=== PATIENT | male | born 1970 | race Two or more races ===

== ENCOUNTER 2022-03-29 17:21 | Emergency (ER) | payer SELFPAY ==
[2022-03-29] MEDS: Diltiazem 25 MG/5 ML SDV IVPUSH ONE (17:45)
[2022-03-29] MEDS: Lactated Ringers 1,000 ML IV STA (17:46)
[2022-03-29] MEDS: Sodium Chloride 0.9% 10 ML Syringe FLUSH PRN (17:51)
[2022-03-29] MEDS: Sodium Chloride 0.9% 2.5 ML Syringe FLUSH PRN (17:51)
[2022-03-29 18:22] LABS: CARBON DIOXIDE,CO2 26.3 mmol/L (21.0-32.0); POTASSIUM,K 3.3 mmol/L (3.5-5.1)
[2022-03-29] MEDS: Carvedilol 25 MG Tab PO ONE (18:28)
[2022-03-29] MEDS: Aspirin 81 MG Tab.Chew PO ONE (19:08)
[2022-03-29] MEDS: atorvaSTATin 40 MG Tab PO ONE (20:47)
[2022-03-29] MEDS: Apixaban 5 MG Tab PO STA (20:47)
== END 2022-03-29 21:07 | disposition home or self-care (01) ==
LOC: MW.ED 17:21
DX: I48.91 Unspecified atrial fibrillation (principal); R77.8 Other specified abnormalities of plasma proteins; Z79.01 Long term (current) use of anticoagulants; Z20.822 Contact with and (suspected) exposure to COVID-19
CPT/HCPCS: 36415; 71045; 80053; 83735; 84443; 84484; 85025; 87635; 93005; 96361; 96374; 99285; A9270; J3490; J7120; U0002

== ENCOUNTER 2022-11-23 18:15 | Emergency (ER) | payer SELFPAY ==
[2022-11-23 18:34] LABS: BASOPHILS PERCENT AUTO 0.2 % (0.0-1.5); EOSINOPHILS ABSOLUTE AUTO 0.1 K/uL (0.0-0.7); HEMATOCRIT 43.4 % (38.0-50.0); LYMPHOCYTES ABSOLUTE AUTO 1.5 K/uL (0.6-2.4); MEAN CORPUSCULAR HEMOGLOBIN 32.7 pg (27.0-32.0); MEAN CORPUSCULAR HGB CONC 34.6 g/dL (31.0-37.0); MEAN CORPUSCULAR VOLUME 94.6 fL (80.0-98.0); MONOCYTES ABSOLUTE AUTO 0.3 K/uL (0.0-0.8); MONOCYTES PERCENT AUTO 6.9 % (0.0-15.0); NEUTROPHILS ABSOLUTE AUTO 2.7 K/uL (1.4-5.7); NEUTROPHILS PERCENT AUTO 57.9 % (48.0-80.0); PLATELET COUNT,PLT 109 K/uL (150-400); RED BLOOD CELL COUNT 4.59 M/uL (4.50-5.90); WHITE BLOOD CELL COUNT,WBC 4.62 K/uL (4.0-11.0)
[2022-11-23] MEDS ORDERED: Aspirin 81 MG Tab.Chew PO ONE (18:39)
[2022-11-23] MEDS ORDERED: Metoprolol Tartrate 25 MG Tab PO ONE (18:41)
[2022-11-23] MEDS ORDERED: Metoprolol Tartrate 5 MG/5 ML SDV IVPUSH ONE (18:41)
[2022-11-23] MEDS ORDERED: Lactated Ringers 1,000 ML IV SCH (18:45)
[2022-11-23 18:49] LABS: INR 0.95 (0.86-1.11)
[2022-11-23 19:03] LABS: A/G RATIO 0.7 (0.9-1.6); ACETAMINOPHEN <2.0 ug/mL; ALANINE AMINOTRANSFERASE,ALT 157 IU/L (14-63); ALBUMIN 3.4 g/dL (3.4-5.0); ALKALINE PHOSPHATASE 71 U/L (46-116); ASPARTATE AMNIOTRANSFERASE,AST 168 IU/L (15-37); BILIRUBIN TOTAL 0.2 mg/dL (0.2-1.0); BLOOD UREA NITROGEN,BUN 12 mg/dL (7.0-18.0); CALCIUM 8.8 mg/dL (8.5-10.1); CARBON DIOXIDE,CO2 24.3 mmol/L (21.0-32.0); CHLORIDE,CL 103 mmol/L (98-107); CREATININE 0.8 mg/dL (0.8-1.3); EST CRCL DRUG DOSING (CG) 109.51 mL/min; GLUCOSE RANDOM 130 mg/dL (74-106); LIPASE 146 U/L (73-393); MAGNESIUM 1.6 mg/dL (1.8-2.4); POTASSIUM,K 3.1 mmol/L (3.5-5.1); SALICYLATE 4.2 mg/dL (0.0-20.0); SODIUM,NA 143 mmol/L (136-148)
[2022-11-23 19:05] LABS: ESTIMATED GFR 106 mL/min (>60)
[2022-11-23 19:06] LABS: ETHANOL BLOOD MEDICAL 341 mg/dL
[2022-11-23] MEDS ORDERED: Magnesium Sulfate/Water 2 GM in Premix Bag 1 BAG IV ONE (19:14)
[2022-11-23] MEDS ORDERED: Potassium Chloride 20 MEQ in Premix Bag 1 BAG IV ONE (19:14)
[2022-11-23] MEDS ORDERED: Potassium Chloride 20 MEQ Tab.ER PO ONE (19:14)
[2022-11-23 19:24] LABS: LACTIC ACID 3.7 mmol/L (0.4-2.0)
[2022-11-23] MEDS ORDERED: Lactated Ringers 1,000 ML IV ONE (19:35)
[2022-11-23] MEDS ORDERED: Enoxaparin 60 MG/0.6 ML Syringe SUBCUT ONE (19:36)
[2022-11-23] MEDS ORDERED: Sodium Chloride 0.9% 250 ML IV PRN (19:37)
[2022-11-23 20:22] LABS: CORONAVIRUS COVID-19 NAA NEGATIVE (NEGATIVE); INFLUENZA A NAA NEGATIVE (NEGATIVE); INFLUENZA B NAA NEGATIVE (NEGATIVE); RESPIRATORY SYNCYTIAL VIR NAA NEGATIVE (NEGATIVE)
[2022-11-23] MEDS ORDERED: Iopamidol 755 MG/ML 500 ML Multipack Bottle IVPUSH STA (21:22)
== END 2022-11-23 23:16 | disposition home or self-care (01) ==
LOC: MW.ED 18:15
DX: I48.91 Unspecified atrial fibrillation (principal); Z79.899 Other long term (current) drug therapy; Z79.01 Long term (current) use of anticoagulants; Z20.822 Contact with and (suspected) exposure to COVID-19
CPT/HCPCS: 0241U; 36415; 71045; 71275; 80053; 80143; 80179; 80307; 83605; 83690; 83735; 83880; 84484; 85025; 85379; 85610; 85730; 86850; 86900; 86901; 93005; 96365; 96367; 96372; 96375; 99285; A9270; J1650; J3475; J3480; J3490; J7050; J7120; Q9967; 93010; 99284

== ENCOUNTER 2023-09-14 13:24 | Emergency (ER) | payer SELFPAY ==
[2023-09-14 13:44] LABS: BASOPHILS ABSOLUTE AUTO 0.03 K/uL (0.00-0.20); BASOPHILS PERCENT AUTO 0.6 % (0.0-1.0); EOSINOPHILS ABSOLUTE AUTO 0.22 K/uL (0.00-0.45); EOSINOPHILS PERCENT AUTO 4.7 % (0.0-6.0); HEMATOCRIT 39.7 % (42.0-52.0); HEMOGLOBIN 13.9 g/dL (14.0-18.0); IMMATURE GRAN ABSOLUTE AUTO 0.01 K/uL (0.00-0.05); IMMATURE GRAN PERCENT AUTO 0.2 % (0.0-0.4); LYMPHOCYTES ABSOLUTE AUTO 1.61 K/uL (1.00-4.80); LYMPHOCYTES PERCENT AUTO 34.2 % (24.0-44.0); MEAN CORPUSCULAR HEMOGLOBIN 32.4 pg (28.0-32.0); MEAN CORPUSCULAR VOLUME 92.5 fL (83.0-99.0); MEAN PLATELET VOLUME 10.1 fL (9.4-12.4); MONOCYTES ABSOLUTE AUTO 0.65 K/uL (0.00-0.80); MONOCYTES PERCENT AUTO 13.8 % (0.0-8.0); NEUTROPHILS ABSOLUTE AUTO 2.19 K/uL (1.80-7.70); NEUTROPHILS PERCENT AUTO 46.5 % (41.0-71.0); PLATELET COUNT,PLT 180 K/uL (150-400); RED BLOOD CELL COUNT 4.29 M/uL (4.52-5.90); WHITE BLOOD CELL COUNT,WBC 4.71 K/uL (3.9-11.3)
[2023-09-14 13:57] LABS: INR 0.98 (0.86-1.11); PTT,PARTIAL THROMBOPLSTIN TIME 28.9 SEC (23.9-30.7)
[2023-09-14 14:09] LABS: A/G RATIO 0.8 (0.9-1.6); ALBUMIN 3.5 g/dL (3.4-5.0); BILIRUBIN TOTAL 0.3 mg/dL (0.2-1.0); CALCIUM 9.9 mg/dL (8.5-10.1); CARBON DIOXIDE,CO2 23.4 mmol/L (21.0-32.0); CREATININE 1.1 mg/dL (0.8-1.3); EST CRCL DRUG DOSING (CG) 79.27 mL/min; POTASSIUM,K 4.4 mmol/L (3.5-5.1); PROTEIN TOTAL,TP 7.8 g/dL (6.4-8.2)
[2023-09-14 14:25] LABS: CORONAVIRUS COVID-19 NAA NEGATIVE (NEGATIVE); INFLUENZA A NAA NEGATIVE (NEGATIVE); INFLUENZA B NAA NEGATIVE (NEGATIVE)
[2023-09-14] MEDS: Carvedilol 12.5 MG Tab PO ONE (16:33)
[2023-09-14] MEDS: Lisinopril 10 MG Tab PO ONE (16:34)
== END 2023-09-14 16:40 | disposition home or self-care (01) ==
LOC: MW.ED 13:24
DX: R07.9 Chest pain, unspecified (principal); I10 Essential (primary) hypertension; I25.2 Old myocardial infarction; Z91.198 Patient's noncompliance with other medical treatment and regimen for other reason; F17.210 Nicotine dependence, cigarettes, uncomplicated
CPT/HCPCS: 0240U; 36415; 71045; 80053; 84484; 85025; 85610; 85730; 99285; A9270; 93010; 99283

== ENCOUNTER 2023-11-12 09:15 | Emergency (ER) | payer SELFPAY ==
[2023-11-12] MEDS: Cyclobenzaprine 10 MG Tab PO ONE (09:52)
[2023-11-12] MEDS: Ibuprofen 600 MG Tab PO ONE (09:52)
== END 2023-11-12 11:02 | disposition home or self-care (01) ==
LOC: MW.ED 09:15
DX: M54.42 Lumbago with sciatica, left side (principal); I10 Essential (primary) hypertension; I25.2 Old myocardial infarction; Z79.82 Long term (current) use of aspirin; Z79.899 Other long term (current) drug therapy; Z75.8 Other problems related to medical facilities and other health care
CPT/HCPCS: 72100; 99283; A9270

== ENCOUNTER 2024-01-19 03:42 | Emergency (ER) | payer SELFPAY ==
[2024-01-19 03:54] LABS: BASOPHILS ABSOLUTE AUTO 0.02 K/uL (0.00-0.20); BASOPHILS PERCENT AUTO 0.3 % (0.0-1.0); EOSINOPHILS ABSOLUTE AUTO 0.13 K/uL (0.00-0.45); EOSINOPHILS PERCENT AUTO 2.1 % (0.0-6.0); HEMATOCRIT 43.6 % (42.0-52.0); HEMOGLOBIN 14.7 g/dL (14.0-18.0); IMMATURE GRAN ABSOLUTE AUTO 0.01 K/uL (0.00-0.05); IMMATURE GRAN PERCENT AUTO 0.2 % (0.0-0.4); LYMPHOCYTES ABSOLUTE AUTO 1.33 K/uL (1.00-4.80); LYMPHOCYTES PERCENT AUTO 21.3 % (24.0-44.0); MEAN CORPUSCULAR HEMOGLOBIN 31.3 pg (28.0-32.0); MEAN CORPUSCULAR HGB CONC 33.7 g/dL (32.0-36.0); MEAN PLATELET VOLUME 10.9 fL (9.4-12.4); MONOCYTES ABSOLUTE AUTO 0.65 K/uL (0.00-0.80); MONOCYTES PERCENT AUTO 10.4 % (0.0-8.0); NEUTROPHILS PERCENT AUTO 65.7 % (41.0-71.0); PLATELET COUNT,PLT 173 K/uL (150-400); RED BLOOD CELL COUNT 4.69 M/uL (4.52-5.90); WHITE BLOOD CELL COUNT,WBC 6.24 K/uL (3.9-11.3)
[2024-01-19] MEDS: Diltiazem 25 MG/5 ML SDV IVPUSH ONE ×2 (04:02)
[2024-01-19] MEDS: Sodium Chloride 0.9% 1,000 ML IV ONE (04:16)
[2024-01-19] MEDS: Sodium Chloride 0.9% 2.5 ML Syringe FLUSH PRN (04:17)
[2024-01-19 04:21] LABS: CARBON DIOXIDE,CO2 24.4 mmol/L (21.0-32.0); POTASSIUM,K 5.3 mmol/L (3.5-5.1)
[2024-01-19 04:22] LABS: A/G RATIO 0.8 (0.9-1.6); ALBUMIN 3.8 g/dL (3.4-5.0); BILIRUBIN TOTAL 0.5 mg/dL (0.2-1.0); CALCIUM 9.4 mg/dL (8.5-10.1); EST CRCL DRUG DOSING (CG) 67.96 mL/min; PROTEIN TOTAL,TP 8.6 g/dL (6.4-8.2)
[2024-01-19 04:23] LABS: APPEARANCE,URINE CLEAR; BILIRUBIN,URINE NEGATIVE (NEGATIVE); COLOR,URINE YELLOW; GLUCOSE,URINE NEGATIVE (NEGATIVE); KETONES,URINE 15 mg/dL (NEGATIVE); LEUKOCYTE ESTERASE,URINE NEGATIVE (NEGATIVE); NITRITE,URINE NEGATIVE (NEGATIVE); OCCULT BLOOD,URINE SMALL (NEGATIVE); PH,URINE 5.5 (5.0-8.0); PROTEIN,URINE NEGATIVE (NEGATIVE); UROBILINOGEN,URINE 0.2 EU/dL (<2.0)
[2024-01-19 04:30] LABS: BACTERIA,URINE RARE (NEGATIVE); EPITHELIAL CELLS,URINE RARE (NONE-FEW); HYALINE CASTS,URINE 0-2 (0-2/LPF); WBC,URINE 0-2 (0-5/HPF)
[2024-01-19 04:37] LABS: D-DIMER QUANTITATIVE 0.69 mg/L FEU (0.00-0.50); INR 1.01 (0.86-1.11); PTT,PARTIAL THROMBOPLSTIN TIME 32.6 SEC (23.9-30.7)
[2024-01-19 04:42] LABS: TSH ULTRASENSITIVE 0.02 uIU/mL (0.36-3.74)
[2024-01-19] MEDS: Diltiazem 100 MG in Sodium Chloride 0.9% 100 ML IV SCH (04:49)
[2024-01-19] MEDS: Magnesium Sulfate/Water 2 GM in Premix Bag 1 BAG IV ONE (04:49)
[2024-01-19 05:38] LABS: T4 FREE 1.67 ng/dL (0.76-1.46)
[2024-01-19] MEDS: Iopamidol 755 MG/ML 500 ML Multipack Bottle IVPUSH STA (05:51)
[2024-01-19] MEDS: diphenhydrAMINE 50 MG/ML SDV IVPUSH ONE (06:14)
[2024-01-19] MEDS: Ondansetron 4 MG/2 ML SDV IVPUSH ONE (06:14)
[2024-01-19] MEDS: diphenhydrAMINE 50 MG/ML SDV ONE (06:36)
[2024-01-19] MEDS: Ondansetron 4 MG/2 ML SDV ONE (06:36)
[2024-01-19] MEDS: Enoxaparin 100 MG/1 ML Syringe SUBCUT STA (06:55)
== END 2024-01-19 09:45 ==
LOC: MW.ED 03:42
DX: I21.4 Non-ST elevation (NSTEMI) myocardial infarction (principal); I48.91 Unspecified atrial fibrillation; I10 Essential (primary) hypertension; I25.2 Old myocardial infarction; Z95.0 Presence of cardiac pacemaker; Z79.82 Long term (current) use of aspirin; Z79.899 Other long term (current) drug therapy
CPT/HCPCS: 36415; 71275; 74177; 80053; 81001; 83735; 83880; 84439; 84443; 84484; 85025; 85379; 85610; 85730; 87651; 93005; 96361; 96365; 96366; 96368; 96372; 96375; 96376; 99285; J1200; J1650; J2405; J3475; J3490; J7030; Q9967

== ENCOUNTER 2024-04-05 06:21 | Day surgery (SDC) | payer SELFPAY ==
[~2024-04-05 06:21] MED LIST: Albuterol 0.083% 2.5 MG/3 ML Neb Soln NEB PRN; HYDROmorphone 1 MG/ML Syringe IVPUSH PRN; Lactated Ringers 1,000 ML IV SCH; Metoclopramide 10 MG/2 ML SDV IVPUSH PRN; Morphine 2 MG/ML SYRINGE IVPUSH PRN; Naloxone 0.4 MG/ML SDV IVPUSH PRN; Ondansetron 4 MG/2 ML SDV IVPUSH PRN; Phenylephrine HCl In 0.9% NaCl 1 MG/10 ML Syringe IVPUSH PRN; droPERidol 5 MG/2 ML SDV IVPUSH PRN; fentaNYL 50 MCG/ML SDV IVPUSH PRN
[2024-04-05] MEDS: Lactated Ringers 1,000 ML IV SCH (06:50)
[2024-04-05] MEDS ORDERED: Bupivacaine 0.5% 30 ML SDV ONE (07:22)
[2024-04-05] MEDS ORDERED: Lidocaine 1% 20 ML MDV ONE (07:22)
[2024-04-05] MEDS ORDERED: Propofol 200 MG/20 ML SDV ONE (07:26)
[2024-04-05] MEDS ORDERED: Lidocaine 2% 5 ML SDV ONE (07:26)
[2024-04-05] MEDS ORDERED: Ondansetron 4 MG/2 ML SDV ONE (07:26)
[2024-04-05] MEDS ORDERED: Dexamethasone 4 MG/ML 5 ML MDV ONE (07:26)
[2024-04-05] MEDS ORDERED: fentaNYL 100 MCG/2 ML SDV ONE (07:26)
[2024-04-05] MEDS ORDERED: Ketorolac 30 MG/ML SDV ONE (07:26)
[2024-04-05] MEDS ORDERED: Lidocaine 2% 11 ML Jelly Filled Syringe ONE (07:26)
[2024-04-05] MEDS ORDERED: ePHEDrine 50 MG/ML SDV ONE (08:03)
[2024-04-05] MEDS ORDERED: ceFAZolin 1 GM Vial ONE (08:04)
[2024-04-05] MEDS ORDERED: Phenylephrine HCl In 0.9% NaCl 1 MG/10 ML Syringe ONE (08:10)
[2024-04-05] MEDS ORDERED: Glycopyrrolate 0.2 MG/ML SDV ONE (08:14)
[2024-04-05] MEDS ORDERED: Atropine 1 MG/ML SDV ONE (08:19)
[2024-04-05] MEDS ORDERED: Calcium Chloride 10% 1 GM/10 ML Syringe ONE (08:22)
[2024-04-05] MEDS ORDERED: Acetaminophen/HYDROcodone 325-5 MG Tab PO PRN (08:59)
[2024-04-05] MEDS ORDERED: Lactated Ringers 1,000 ML IV SCH (09:00)
== END 2024-04-05 09:34 | disposition home or self-care (01) ==
LOC: MW.SDS 06:21
PROVIDERS: ATTEND Surgery
DX: D17.22 Benign lipomatous neoplasm of skin and subcutaneous tissue of left arm (principal); I10 Essential (primary) hypertension; I25.10 Atherosclerotic heart disease of native coronary artery without angina pectoris; I48.0 Paroxysmal atrial fibrillation; E78.5 Hyperlipidemia, unspecified; Z79.82 Long term (current) use of aspirin; Z79.899 Other long term (current) drug therapy
CPT/HCPCS: 23071; J0461; J0665; J0690; J1100; J1596; J1885; J2371; J2405; J2704; J3010; J7120; 00400; A9270-GY; J3490

== ENCOUNTER 2024-04-17 14:07 | Emergency (ER) | payer SELFPAY | END 2024-04-17 16:00 | disposition home or self-care (01) | LOC: MW.ED 14:07 | DX: T81.30XA Disruption of wound, unspecified, initial encounter (principal); I10 Essential (primary) hypertension; I25.2 Old myocardial infarction; Z95.0 Presence of cardiac pacemaker; Z79.899 Other long term (current) drug therapy; Z75.8 Other problems related to medical facilities and other health care; Z95.1 Presence of aortocoronary bypass graft | CPT/HCPCS: 99283 ==

== ENCOUNTER 2024-08-25 08:27 | Emergency (ER) | payer OTHER | END 2024-08-25 10:28 | disposition home or self-care (01) | LOC: MW.ED 08:27 | DX: J40 Bronchitis, not specified as acute or chronic (principal); B34.9 Viral infection, unspecified; I48.91 Unspecified atrial fibrillation; I10 Essential (primary) hypertension; I25.2 Old myocardial infarction; Z95.0 Presence of cardiac pacemaker; Z95.1 Presence of aortocoronary bypass graft; Z79.899 Other long term (current) drug therapy | CPT/HCPCS: 87428-QW; 99284 ==

== ENCOUNTER 2024-11-25 13:05 | Emergency (ER) | payer SELFPAY ==
[2024-11-25 13:28] LABS: BASOPHILS ABSOLUTE AUTO 0.03 K/uL (0.00-0.20); BASOPHILS PERCENT AUTO 0.7 % (0.0-1.0); EOSINOPHILS ABSOLUTE AUTO 0.15 K/uL (0.00-0.45); EOSINOPHILS PERCENT AUTO 3.3 % (0.0-6.0); HEMATOCRIT 40.4 % (42.0-52.0); IMMATURE GRAN ABSOLUTE AUTO 0.01 K/uL (0.00-0.05); IMMATURE GRAN PERCENT AUTO 0.2 % (0.0-0.4); LYMPHOCYTES ABSOLUTE AUTO 1.08 K/uL (1.00-4.80); LYMPHOCYTES PERCENT AUTO 23.6 % (24.0-44.0); MEAN CORPUSCULAR HEMOGLOBIN 31.7 pg (28.0-32.0); MEAN CORPUSCULAR HGB CONC 34.7 g/dL (32.0-36.0); MEAN CORPUSCULAR VOLUME 91.6 fL (83.0-99.0); MEAN PLATELET VOLUME 10.3 fL (9.4-12.4); MONOCYTES ABSOLUTE AUTO 0.56 K/uL (0.00-0.80); MONOCYTES PERCENT AUTO 12.3 % (0.0-8.0); NEUTROPHILS ABSOLUTE AUTO 2.74 K/uL (1.80-7.70); NEUTROPHILS PERCENT AUTO 59.9 % (41.0-71.0); PLATELET COUNT,PLT 206 K/uL (150-400); RED BLOOD CELL COUNT 4.41 M/uL (4.52-5.90); WHITE BLOOD CELL COUNT,WBC 4.57 K/uL (3.9-11.3)
[2024-11-25 13:54] LABS: INR 0.99 (0.86-1.11)
[2024-11-25] MEDS: Aspirin 81 MG Tab.Chew PO ONE (13:55)
[2024-11-25 13:58] LABS: A/G RATIO 0.9 (0.9-1.6); ALBUMIN 3.5 g/dL (3.4-5.0); BILIRUBIN TOTAL 0.3 mg/dL (0.2-1.0); CALCIUM 9.2 mg/dL (8.5-10.1); CARBON DIOXIDE,CO2 27.7 mmol/L (21.0-32.0); EST CRCL DRUG DOSING (CG) 78.03 mL/min; MAGNESIUM 1.8 mg/dL (1.8-2.4); POTASSIUM,K 3.8 mmol/L (3.5-5.1); PROTEIN TOTAL,TP 7.6 g/dL (6.4-8.2)
[2024-11-25] MEDS: Heparin Sodium/0.45% NaCl 25,000 UNITS/250 ML BAG IV SCH (15:07)
[2024-11-25] MEDS: Heparin Sodium 5,000 Units/ML Vial IVPUSH ONE (15:07)
[2024-11-25] MEDS: Nitroglycerin 2% Oint 1 GM UD Packet TOP STA (16:17)
== END 2024-11-25 16:59 ==
LOC: MW.ED 13:05
DX: I21.4 Non-ST elevation (NSTEMI) myocardial infarction (principal); I25.2 Old myocardial infarction; I10 Essential (primary) hypertension; Z95.5 Presence of coronary angioplasty implant and graft; Z79.899 Other long term (current) drug therapy
CPT/HCPCS: 36415; 71045; 80053; 83690; 83735; 83880; 84484; 85025; 85610; 85730; 93005; 96365; 96366; 99285; A9270; J1644; 93010

== ENCOUNTER 2024-12-25 11:40 | Emergency (ER) | payer SELFPAY ==
[2024-12-25 12:07] LABS: BASOPHILS ABSOLUTE AUTO 0.02 K/uL (0.00-0.20); BASOPHILS PERCENT AUTO 0.5 % (0.0-1.0); EOSINOPHILS ABSOLUTE AUTO 0.18 K/uL (0.00-0.45); EOSINOPHILS PERCENT AUTO 4.6 % (0.0-6.0); HEMATOCRIT 38.4 % (42.0-52.0); HEMOGLOBIN 13.1 g/dL (14.0-18.0); IMMATURE GRAN ABSOLUTE AUTO 0.01 K/uL (0.00-0.05); IMMATURE GRAN PERCENT AUTO 0.3 % (0.0-0.4); LYMPHOCYTES ABSOLUTE AUTO 1.04 K/uL (1.00-4.80); LYMPHOCYTES PERCENT AUTO 26.8 % (24.0-44.0); MEAN CORPUSCULAR HEMOGLOBIN 31.3 pg (28.0-32.0); MEAN CORPUSCULAR HGB CONC 34.1 g/dL (32.0-36.0); MEAN CORPUSCULAR VOLUME 91.9 fL (83.0-99.0); MEAN PLATELET VOLUME 10.1 fL (9.4-12.4); MONOCYTES ABSOLUTE AUTO 0.52 K/uL (0.00-0.80); MONOCYTES PERCENT AUTO 13.4 % (0.0-8.0); NEUTROPHILS ABSOLUTE AUTO 2.11 K/uL (1.80-7.70); NEUTROPHILS PERCENT AUTO 54.4 % (41.0-71.0); PLATELET COUNT,PLT 220 K/uL (150-400); RED BLOOD CELL COUNT 4.18 M/uL (4.52-5.90); WHITE BLOOD CELL COUNT,WBC 3.88 K/uL (3.9-11.3)
[2024-12-25 12:21] LABS: INR 1.02 (0.86-1.11); PTT,PARTIAL THROMBOPLSTIN TIME 28.5 SEC (23.9-30.7)
[2024-12-25 12:29] LABS: A/G RATIO 0.9 (0.9-1.6); ALBUMIN 3.7 g/dL (3.4-5.0); BILIRUBIN TOTAL 0.3 mg/dL (0.2-1.0); CALCIUM 9.7 mg/dL (8.5-10.1); CARBON DIOXIDE,CO2 26.1 mmol/L (21.0-32.0); EST CRCL DRUG DOSING (CG) 83.47 mL/min
[2024-12-25 12:37] LABS: MAGNESIUM 1.7 mg/dL (1.8-2.4)
[2024-12-25 13:06] LABS: APPEARANCE,URINE CLEAR; BILIRUBIN,URINE NEGATIVE (NEGATIVE); COLOR,URINE YELLOW; GLUCOSE,URINE NEGATIVE (NEGATIVE); KETONES,URINE NEGATIVE (NEGATIVE); LEUKOCYTE ESTERASE,URINE NEGATIVE (NEGATIVE); NITRITE,URINE NEGATIVE (NEGATIVE); OCCULT BLOOD,URINE SMALL (NEGATIVE); PH,URINE 5.5 (5.0-8.0); PROTEIN,URINE NEGATIVE (NEGATIVE); UROBILINOGEN,URINE 0.2 EU/dL (<2.0)
[2024-12-25 13:13] LABS: BACTERIA,URINE FEW (NEGATIVE); EPITHELIAL CELLS,URINE RARE (NONE-FEW); RBC,URINE 0-1 (0-2/HPF); WBC,URINE 0-1 (0-5/HPF)
== END 2024-12-25 15:36 | disposition home or self-care (01) ==
LOC: MW.ED 11:40
DX: R07.89 Other chest pain (principal); R31.9 Hematuria, unspecified; I10 Essential (primary) hypertension; Z75.3 Unavailability and inaccessibility of health-care facilities; Z91.148 Patient's other noncompliance with medication regimen for other reason; Z79.899 Other long term (current) drug therapy
CPT/HCPCS: 36415; 71045; 71045-26; 80053; 81001; 83690; 83735; 83880; 84484; 85025; 85610; 85730; 93005; 93010; 99284; 99285

== ENCOUNTER 2025-01-23 07:38 | Emergency (ER) | payer SELFPAY ==
[2025-01-23] MEDS ORDERED: Sodium Chloride 0.9% 10 ML Syringe FLUSH PRN (07:59)
[2025-01-23] MEDS ORDERED: Sodium Chloride 0.9% 2.5 ML Syringe FLUSH PRN (07:59)
[2025-01-23 08:18] LABS: BASOPHILS ABSOLUTE AUTO 0.01 K/uL (0.00-0.20); BASOPHILS PERCENT AUTO 0.2 % (0.0-1.0); EOSINOPHILS ABSOLUTE AUTO 0.09 K/uL (0.00-0.45); EOSINOPHILS PERCENT AUTO 1.9 % (0.0-6.0); IMMATURE GRAN ABSOLUTE AUTO 0.01 K/uL (0.00-0.05); IMMATURE GRAN PERCENT AUTO 0.2 % (0.0-0.4); LYMPHOCYTES ABSOLUTE AUTO 1.42 K/uL (1.00-4.80); LYMPHOCYTES PERCENT AUTO 29.3 % (24.0-44.0); MEAN PLATELET VOLUME 10.5 fL (9.4-12.4); MONOCYTES ABSOLUTE AUTO 0.68 K/uL (0.00-0.80); MONOCYTES PERCENT AUTO 14.0 % (0.0-8.0); NEUTROPHILS ABSOLUTE AUTO 2.63 K/uL (1.80-7.70); NEUTROPHILS PERCENT AUTO 54.4 % (41.0-71.0); NRBC ABSOLUTE 0.00 K/uL (0.00-0.02); NRBC PERCENT 0.0 /100WBC (0.0-0.2); PLATELET COUNT,PLT 167 K/uL (150-400); RED BLOOD CELL COUNT 4.29 M/uL (4.52-5.90); WHITE BLOOD CELL COUNT,WBC 4.84 K/uL (3.9-11.3)
[2025-01-23 08:46] LABS: A/G RATIO 0.8 (0.9-1.6); ALANINE AMINOTRANSFERASE,ALT 14.0 IU/L (14-63); ASPARTATE AMNIOTRANSFERASE,AST 21.0 IU/L (15-37); BILIRUBIN TOTAL 0.2 mg/dL (0.2-1.0); BLOOD UREA NITROGEN,BUN 14.0 mg/dL (7.0-18.0); CARBON DIOXIDE,CO2 24.1 mmol/L (21.0-32.0); CHLORIDE,CL 101.0 mmol/L (98-107); CREATININE 1.0 mg/dL (0.8-1.3); EST CRCL DRUG DOSING (CG) 83.47 mL/min; GLUCOSE RANDOM 132.0 mg/dL (74-106); POTASSIUM,K 3.7 mmol/L (3.5-5.1); PROTEIN TOTAL,TP 7.4 g/dL (6.4-8.2); SODIUM,NA 135.0 mmol/L (136-148)
[2025-01-23 08:47] LABS: ESTIMATED GFR 89.0 mL/min (>60)
== END 2025-01-23 09:12 | disposition home or self-care (01) ==
LOC: MW.ED 07:38
DX: U07.1 COVID-19 (principal); J10.1 Influenza due to other identified influenza virus with other respiratory manifestations
CPT/HCPCS: 36415; 71046; 80053; 83690; 85025; 87428; 93005; 99285; A9270; 99283

== ENCOUNTER 2025-05-12 08:53 | Emergency (ER) | payer SELFPAY ==
[2025-05-12] MEDS: hydrALAZINE 20 MG/ML SDV IVPUSH ONE (09:43)
[2025-05-12 09:48] LABS: BASOPHILS ABSOLUTE AUTO 0.02 K/uL (0.00-0.20); BASOPHILS PERCENT AUTO 0.4 % (0.0-1.0); EOSINOPHILS ABSOLUTE AUTO 0.16 K/uL (0.00-0.45); EOSINOPHILS PERCENT AUTO 3.5 % (0.0-6.0); IMMATURE GRAN ABSOLUTE AUTO 0.02 K/uL (0.00-0.05); IMMATURE GRAN PERCENT AUTO 0.4 % (0.0-0.4); LYMPHOCYTES ABSOLUTE AUTO 1.72 K/uL (1.00-4.80); LYMPHOCYTES PERCENT AUTO 37.6 % (24.0-44.0); MEAN PLATELET VOLUME 10.1 fL (9.4-12.4); MONOCYTES ABSOLUTE AUTO 0.62 K/uL (0.00-0.80); MONOCYTES PERCENT AUTO 13.6 % (0.0-8.0); NEUTROPHILS ABSOLUTE AUTO 2.03 K/uL (1.80-7.70); NEUTROPHILS PERCENT AUTO 44.5 % (41.0-71.0); NRBC ABSOLUTE 0.00 K/uL (0.00-0.02); NRBC PERCENT 0.0 /100WBC (0.0-0.2); PLATELET COUNT,PLT 227 K/uL (150-400); RED BLOOD CELL COUNT 4.33 M/uL (4.52-5.90); WHITE BLOOD CELL COUNT,WBC 4.57 K/uL (3.9-11.3)
[2025-05-12 09:57] LABS: A/G RATIO 0.8 (0.9-1.6); ALANINE AMINOTRANSFERASE,ALT 19.0 IU/L (14-63); ASPARTATE AMNIOTRANSFERASE,AST 18.0 IU/L (15-37); BILIRUBIN TOTAL 0.2 mg/dL (0.2-1.0); BLOOD UREA NITROGEN,BUN 17.0 mg/dL (7.0-18.0); CARBON DIOXIDE,CO2 29.1 mmol/L (21.0-32.0); CHLORIDE,CL 102.0 mmol/L (98-107); CREATININE 0.8 mg/dL (0.8-1.3); EST CRCL DRUG DOSING (CG) 107.73 mL/min; GLUCOSE RANDOM 132.0 mg/dL (74-106); POTASSIUM,K 4.3 mmol/L (3.5-5.1); PROTEIN TOTAL,TP 8.4 g/dL (6.4-8.2); SODIUM,NA 138.0 mmol/L (136-148)
[2025-05-12 09:59] LABS: ESTIMATED GFR 105.0 mL/min (>60)
[2025-05-12 10:00] LABS: INR 1.02 (0.86-1.11); PTT,PARTIAL THROMBOPLSTIN TIME 28.6 SEC (23.9-30.7)
[2025-05-12] MEDS: Nitroglycerin 2% Oint 1 GM UD Packet TOP ONE (11:06)
[2025-05-12] MEDS: Heparin Sodium 5,000 Units/ML Vial IVPUSH ONE (13:37)
[2025-05-12] MEDS: Heparin Sodium/0.45% NaCl 25,000 UNITS/250 ML BAG IV SCH (13:37)
== END 2025-05-12 14:51 ==
LOC: MW.ED 08:53
DX: I21.4 Non-ST elevation (NSTEMI) myocardial infarction (principal); I10 Essential (primary) hypertension; I48.91 Unspecified atrial fibrillation; F17.200 Nicotine dependence, unspecified, uncomplicated; Z79.899 Other long term (current) drug therapy; Z95.0 Presence of cardiac pacemaker
CPT/HCPCS: 36415; 70450; 71046; 80053; 83735; 84484; 85025; 85610; 85730; 93005; 96365; 96366; 96368; 99285; A9270; J1644; J2305; 93010